=== PATIENT | female | born 1990 | race Hispanic/Latino ===

== ENCOUNTER 2021-10-18 17:27 | Emergency (ER) | payer OTHER, SELFPAY ==
--- NOTE | ~2021-10-18 | XR_ITS ---
EXAMINATION: XR chest 1V portable DATE: 10/18/2021 20:55 INDICATION: Cough, weakness, cold and nausea TECHNIQUE: frontal view of the chest was obtained. COMPARISON: None FINDINGS: Mildly decreased lung volumes. Mild streaky opacities at the lung bases and would favor atelectasis o roz pneumonia. No pleural effusion or pneumothorax. The cardiomediastinal silhouette is normal. Visua lized bones and soft tissues are unremarkable. IMPRESSION: 1. Mildly decreased lung volumes with mild streaky bibasilar opacities and would favor atelectasis ov er pneumonia. Reviewed, dictated and finalized at location H. UCER ASSISTANT IMPRESSION: 1. Mildly decreased lung volumes with mild streaky bibasilar opacities and woul d favor atelectasis over pneumonia.
[2021-10-18 17:47] VITALS: BP 138/82; PULSE 130; RESP 18; TEMP 37.4; O2SAT 96
--- NOTE | 2021-10-18 20:38 | ECG_ITS ---
Measurements Intervals [place] Rate: 124 P: 38 TN: 158 QRS: 37 QRSD: 90 T: -6 QT: 294 QTc: 423 Interpretive Statements SINUS TACHYCARDIA CONSIDER INFERIOR INFARCT, AGE INDETERMINATE ABNORMAL ECG Electronically Signed On 10-19-2021 7:44:10 [employer]YWALL SANDER by Michael Esparza D.O.
[2021-10-18 20:40] VITALS: BP 136/74; PULSE 128; RESP 27; O2SAT 95
--- NOTE | 2021-10-18 20:41 | ED.GENADULT ---
HPI - General Adult General Chief complaint: Nausea/Vomiting/Diarrhea Stated complaint: fever Time Seen by Provider: 10/18/21 20:07 Source: patient Mode of arrival: ambulatory Limitations: no limitations History of Present Illness HPI narrative: Patient presents to the emergency department stating that she has had a multitude of symptoms since yesterday. Symptoms include fever, chills, nausea, vomiting, abdominal pain, chest pain, productive cough of yellow sputum, shortness of breath, generalized weakness, headache, neck pain, and fatigue. She has a hx of headaches and current headache is consistent with nature and quality of normal headaches. She states her current headache is global and she feels like her head is going to explode . She describes her chest pain as scratchy and burning . She denies any recent known sick contacts. No hx of COVID. She has received the first of her COVID vaccinations and is scheduled to receive her second dose next month. She has been taking tylenol for her symptoms without much improvement. She states she has not been able to eat or drink today. She denies any significant underlying medical problems. She does not smoke. Related Data Allergies Allergy/AdvReac Type Severity Reaction Status Date / Time No Known Allergies Allergy Unverified 06/30/16 18:13 Review of Systems Review of Systems: CONSTITUTIONAL: Reports fever and chills. Denies sweats. EYES: Denies visual changes, redness, or discharge. ENT: Reports sore throat. Denies rhinorrhea, congestion or otalgia. CARDIOVASCULAR: Reports chest pain. Denies palpitations or edema. RESPIRATORY: Reports productive cough of yellow sputum and shortness of breath. GASTROINTESTINAL: Reports abdominal pain, nausea, vomiting. Denies diarrhea or constipation.. GENITOURINARY: Denies dysuria or hematuria. SKIN: Denies rash or itching. MUSCULOSKELETAL: Reports neck pain. Denies back pain, joint pain, or myalgia. NEUROLOGIC: Reports headache and generalized weakness. Denies numbness or dizziness. PSYCHIATRIC: Denies anxiety or depression. [facility] Past Medical History Medical History (Updated 10/18/21 @ 22:03 by Alfredo Celestin, KATHRYN, ) Headache Surgical History Surgical History History of section Family History Family History Mother No pertinent past medical history Social History Social History Smoking status: Never smoker Substance use: never Living arrangements: with family Gender identity (if verbalized by the patient): Female Sexual Orientation (if Verbalized by the Patient): Straight or Heterosexual Spiritual care concerns: No Exam Narrative: GENERAL: Appears acutely ill, in no apparent distress HEAD: Normocephalic, atraumatic. EYES: PERRLA and EOMI. ENT: Nares clear, no rhinorrhea or epistaxis. Mucous membranes moist. Oropharynx without tonsillar hypertrophy exudate or other lesions. Bilateral TMs pearly jiménez nonbulging NECK: Supple. No adenopathy or masses. No carotid bruits or JVD CHEST: Clear to auscultation. cough noted on exam. No respiratory distress. No wheezes rales or rhonchi HEART: Rate 130. Normal rhythm. No murmur heard. Normal peripheral pulses. ABDOMEN: Soft, mild diffuse nonspecific tenderness without rebound or guarding. Abdomen is nondistended, normal active bowel sounds. EXTREMITIES: Normal range of motion. No edema. SKIN: Warm, dry, no rash. NEURO: Negative Brudzinski sign. Negative Kernig sign. No focal deficits. Alert and oriented x3. PSYCH: Normal mood and affect. Course Course Emergency Course: This is a 31-year-old female who presented with multitude of complaints. Initial consideration was for COVID vs influenza vs CAP vs acute viral syndrome versus other. Labs, EKG, CXR obtained. Pt was hydrated
--- NOTE | 2021-10-18 20:59 | PC.NURSE ---
Pt moved from H2 to 14 due to COVID s/s
[2021-10-18 21:31] LABS: Add Urine Microscopic? YES; Appearance Urine Clear (Clear); Bilirubin Urine Negative (Negative); Blood Urine 1+ (Negative); Color Urine Yellow (Yellow); Glucose Urine UA Negative (Negative); Ketones Urine Negative (Negative); Leukocyte Esterase Ur Negative LEU/UL (Negative); Mucus Urine Few /lpf; Nitrate Urine Negative (Negative); Protein Urine 2+ mg/dL (Negative); Specific Grav Ur 1.023 (1.001-1.035); Squamous Epithelial Cell Urine Many /hpf (Few); Urobilinogen Urine Negative mg/dL (<2.0)
[2021-10-18] MEDS: SODIUM CHLORIDE 0.9% IV 1,000 ML 999 ML IV CONT ×2 (21:33→22:58)
[2021-10-18] MEDS: ONDANSETRON INJ 4 MG/2 ML VIAL IV PUSH (21:34)
[2021-10-18] MEDS: ACETAMINOPHEN 325 MG TABLET 650 MG PO (21:34)
[2021-10-18 21:52] LABS: Basophils Percent Auto 0.3 % (0.2-1.2); Eosinophils Percent Auto 0.4 % (0-4.4); Hematocrit 38.3 % (37.0-47.0); Hemoglobin 13.1 g/dL (12.0-15.0); Immature Granulocyte Absolute 0.09 K/mm3 (0.00-0.031); Immature Granulocyte Percent A 1.3 % (0-0.5); Lymphocytes Absolute Auto 0.93 K/mm3 (0.9-3.2); Lymphocytes Percent Auto 13.9 % (18.3-44.2); Mean Corpuscular HGB Conc 34.2 g/dl (32-36); Mean Corpuscular Hemoglobin 31.5 pg (26-34); Mean Corpuscular Volume 92.1 fl (80-100); Mean Platelet Volume 10.4 fl (7.4-10.4); Monocytes Absolute Auto 0.5 K/mm3 (0.1-0.6); Monocytes Percent Auto 7.5 % (2.6-8.5); Neutrophils Absolute Auto 5.1 K/mm3 (1.3-6.7); Neutrophils Percent Auto 76.6 % (45.5-73.1); Platelet Count Result 270 k/mm3 (150-375); Red Blood Count 4.16 M/mm3 (4.2-5.4); Red Cell Distribution Width 11.9 % (11.5-14.5); White Blood Count 6.7 K/mm3 (4.5-10.0)
[2021-10-18 22:03] LABS: Lactic Acid Reflex 1.2 mmol/L (0.7-2.1)
[2021-10-18 22:05] LABS: Alanine Aminotransferase 192 U/L (4-35); Alkaline Phosphatase 89 U/L (38-126); Anion Gap 10 mmol/L (8-16); Aspartate Amino Transferase 185 U/L (14-36); Bilirubin,Total 0.4 mg/dL (0.2-1.3); Blood Urea Nitrogen 10 mg/dL (7-17); CRP 0.9 mg/dL (<1.0); Calcium 9.3 mg/dL (8.4-10.2); Carbon Dioxide 24 mmol/L (22-30); Chloride 95 mmol/L (98-107); Creatine Kinase 100 U/L (30-135); Estimated CRCL calculation 169 ml/min; Estimated Glomerular Filt Rate > 60; Glucose 126 mg/dL (65-110); Lactate Dehydrogenase 996 U/L (313-618); Lipase 42 U/L (23-300); Sodium 129 mmol/L (137-145)
[2021-10-18 22:14] LABS: Troponin I < 0.012 ng/mL (0.000-0.034)
[2021-10-18 22:47] LABS: Prothrombin Time 13.3 Seconds (11.1-14.7)
[2021-10-18 22:48] LABS: Partial Thromboplastin Time 36.3 SECONDS (22.3-36.8)
[2021-10-18 22:50] LABS: D Dimer 0.47 ug/mL (<0.48)
[2021-10-18 22:56] VITALS: BP 109/64; PULSE 112; RESP 19; O2SAT 96
[2021-10-18] MEDS: MORPHINE SULFATE (*CRX) 2 MG/ML INJ IV PUSH (22:58)
[2021-10-19 00:19] VITALS: BP 111/62; PULSE 97; RESP 20; O2SAT 96
[2021-10-19 00:55] LABS: Troponin I < 0.012 ng/mL (0.000-0.034)
[2021-10-19 01:26] VITALS: BP 103/64; PULSE 106; RESP 20; TEMP 37.1; O2SAT 94
[2021-10-19 15:26] LABS: SARS-CoV-2 RNA PCR Positive
== END 2021-10-19 01:30 | disposition home or self-care (01) ==
PROVIDERS: Emergency Medicine; Emergency Provider Nurse Practitioner
DX: U07.1 COVID-19 (principal)
CPT/HCPCS: 36415; 71045; 80053; 81001; 81025; 82550; 83605; 83615; 83690; 84484; 85025; 85380; 85610; 85730; 86140; 87081; 87804; 87880; 93005; 96361; 96374; 96375; 99284; A9270; C9803; J2270; J2405; J7030; U0003; U0005

== ENCOUNTER 2022-11-11 09:15 | Emergency (ER) | payer OTHER, SELFPAY ==
[2022-11-11 09:18] VITALS: BP 127/72; PULSE 80; RESP 14; TEMP 36.4; O2SAT 96
--- NOTE | 2022-11-11 09:38 | ED.EXTPRO ---
HPI - Extremity Problem General Chief complaint: Extremity Problem,Nontraumatic Stated complaint: R arm wound Time Seen by Provider: 11/11/22 09:23 Source: patient Mode of arrival: ambulatory Limitations: language barrier ([employer] reading specialist used) History of Present Illness HPI Narrative: This is a 32 year old female that presents to the emergency department for an area of redness and swelling to the right arm ongoing over the last 6 days. Reports over the last 2 days she has had drainage from the area. She has been using antibiotic ointment with little relief. Denies fevers. Related Data Allergies Allergy/AdvReac Type Severity Reaction Status Date / Time No Known Allergies Allergy Verified 11/11/22 09:25 Review of Systems Review of Systems: CONSTITUTIONAL: Denies fever SKIN: Reports redness and swelling All systems reviewed & are unremarkable except as noted in HPI and below PMFSH Past Medical History Medical History (Updated 11/11/22 @ 10:43 by Nidia Musa PA-C) Headache Surgical History Surgical History History of section Family History Family History Mother No pertinent past medical history Social History Social History Smoking status: Never smoker Substance use: never Gender identity (if verbalized by the patient): Female Sexual Orientation (if Verbalized by the Patient): Straight or Heterosexual Spiritual care concerns: No Exam Narrative: GENERAL: Well-appearing, well-nourished, and in no acute distress. HEAD: Normocephalic, atraumatic. EYES: EOMI. CHEST: No respiratory distress. HEART: Regular rate EXTREMITIES: Normal range of motion. Right forearm with mild to moderate area of erythema and induration with central area of purulence actively draining. No lymphangitic streaking SKIN: Warm, dry, no rash. NEURO: No focal deficits. Alert and oriented x3. PSYCH: Normal mood and affect Course Vital Signs Vital signs: Vital Signs Temperature 97.6 F 11/11/22 09:18 Pulse Rate 80 11/11/22 09:18 Respiratory Rate 14 11/11/22 09:18 Blood Pressure 127/72 11/11/22 09:18 Pulse Oximetry 96 11/11/22 09:18 Temperature 97.6 F 11/11/22 09:18 Pulse Rate 80 11/11/22 09:18 Respiratory Rate 14 11/11/22 09:18 Blood Pressure 127/72 11/11/22 09:18 Pulse Oximetry 96 11/11/22 09:18 Procedures Abscess I/D upper extremity: Date of Incision: 11/11/22 Time of Incision: 10:42 Side (if applicable): right Local Anesthetic: lidocaine 2% and with epi Amount of anesthesia used (mL): 3 Technique: incised with #11 blade Irrigation: Yes Packing used?: iodoform I&D Results: Pus and Blood MDM - Extremity (Nontraumatic) MDM Narrative Medical decision making narrative: Patient presents to the emergency department for an abscess to the right forearm. Reports ongoing over the last 6 days. She is afebrile and nontoxic-appearing. No lymphangitic streaking. She does have mild surrounding cellulitis. The abscess was spontaneously draining, I did open it up a little bit more and packed the area. I sent a wound culture. She will be started on oral antibiotics and was instructed on further care of her wound. She will be given primary doctor for follow-up. She was given warnings to return to the ER Critical Care Time Critical Care Time Critical Care Time: No Discharge Plan Discharge Clinical Impression: Abscess Patient Disposition: Home, Self-Care Condition: Stable Instructions: Antibiotic Form, Abscess (ED) Additional Instructions: Return if symptoms worsen or concerns: any increase in redness, swelling, pain or fever over 101 Take antibiotics as directed. Clean wound with mild soapy water. Apply antibiotic
== END 2022-11-11 11:14 | disposition home or self-care (01) ==
PROVIDERS: Emergency Provider Emergency Medicine
DX: L02.413 Cutaneous abscess of right upper limb (principal)
CPT/HCPCS: 10061; 87070; 87147; 87186; 87205; 99283

== ENCOUNTER 2022-11-14 13:26 | Emergency (ER) | payer OTHER, SELFPAY ==
[2022-11-14 13:49] VITALS: BP 130/77; PULSE 90; RESP 16; TEMP 36.1; O2SAT 97
--- NOTE | 2022-11-14 14:59 | ED.GENADULT ---
HPI - General Adult General Chief complaint: Unspecified Stated complaint: low blood pressure Time Seen by Provider: 11/14/22 14:05 History of Present Illness HPI narrative: 32-year-old female here for evaluation at request of her PCP of low blood pressure. Reportedly 90s over 60s in the office. Patient's blood pressure is 130/77 here. Her only complaint is that she had an abscess drained in the ED 3 days ago and is requesting copies of the cultures. Has been taking clindamycin. She also notes a headache but has not attempted any medicine for her pain. Denies visual changes, nausea, vomiting, fevers or chills. Related Data Allergies Allergy/AdvReac Type Severity Reaction Status Date / Time No Known Allergies Allergy Verified 11/14/22 13:58 Review of Systems Review of Systems: Gen.: Reports headache. Denies fevers or chills Eyes: Denies eye pain or visual change ENT: Denies congestion Respiratory: Denies shortness of breath or cough CV: Denies chest pain or palpitations GI: Denies abdominal pain nausea, emesis or diarrhea denies burning, urgency, frequency or hematuria Musculoskeletal: Denies back pain or muscle pain Neuro: Denies numbness, tingling, weakness or focal weakness Skin: Denies rash Except as documented, all other systems reviewed and negative PMFSH Past Medical History Medical History Headache Surgical History Surgical History History of section Family History Family History Mother No pertinent past medical history Social History Social History Smoking status: Never smoker Substance use: never Living arrangements: with family Gender identity (if verbalized by the patient): Female Sexual Orientation (if Verbalized by the Patient): Straight or Heterosexual Spiritual care concerns: No Exam Narrative: APPEARANCE: Well appearing, no pain in distress, well-nourished. Head: Normocephalic and atraumatic. EYES: PERRLA/EOMI, conjunctivae clear NOSE: No nasal drainage EARS: External ear normal in appearance THROAT: Oropharynx is clear. Mucous membranes are moist. NECK: Supple. No adenopathy, no masses. RESPIRATORY: Airway patent, respirations nonlabored. Clear to auscultation bilaterally, no rales, rhonchi, wheezing. CARDIOVASCULAR: Regular rate and rhythm without murmurs, rubs, or gallops. ABDOMINAL: Normoactive bowel sounds. Soft, nontender, nondistended. No rebound tenderness or guarding. MUSCULOSKELETAL: Extremities are warm and well-perfused. Moves all extremities well. No edema. NEURO: Normal speech. No focal neurologic deficits. SKIN: patient has a 2x3 cm area of induration to the r forearm with no surrounding erythema. no tenderness to palpation. PSYCHIATRIC: Normal affect/mood. Course Vital Signs Vital signs: Vital Signs Temperature 97 F L 11/14/22 13:49 Pulse Rate 90 11/14/22 13:49 Respiratory Rate 16 11/14/22 13:49 Blood Pressure 130/77 11/14/22 13:49 Pulse Oximetry 97 11/14/22 13:49 Oxygen Delivery Room Air 11/14/22 13:49 Temperature 97 F L 11/14/22 13:49 Pulse Rate 82 11/14/22 16:34 Respiratory Rate 16 11/14/22 16:34 Blood Pressure 127/88 11/14/22 16:34 Pulse Oximetry 100 11/14/22 16:34 Oxygen Delivery Room Air 11/14/22 13:49 Medical Decision Making MDM Narrative Medical decision making narrative: 32 year old female here for evaluation after low BP in PCPs office; noted to be 130/77 here. Remainder of vital signs normal. Patient's only complaint is a headache requesting copies of her cultures from an abscess she had drained in the ED several days ago. Per chart review this was staph aureus susceptible to clindamycin that she is taking. She was given Tylenol with resolution
[2022-11-14] MEDS: ACETAMINOPHEN 325 MG TABLET 650 MG PO (15:00)
[2022-11-14 15:12] LABS: Basophils Percent Auto 0.4 % (0.2-1.2); Eosinophils Absolute Auto 0.3 K/mm3 (0-0.3); Eosinophils Percent Auto 2.6 % (0-4.4); Hematocrit 40.2 % (37.0-47.0); Hemoglobin 13.6 g/dL (12.0-15.0); Immature Granulocyte Absolute 0.07 K/mm3 (0.00-0.031); Immature Granulocyte Percent A 0.7 % (0-0.5); Mean Corpuscular HGB Conc 33.8 g/dl (32-36); Mean Corpuscular Volume 91.6 fl (80-100); Mean Platelet Volume 10.3 fl (7.4-10.4); Monocytes Absolute Auto 0.5 K/mm3 (0.1-0.6); Monocytes Percent Auto 5.1 % (2.6-8.5); Neutrophils Absolute Auto 5.2 K/mm3 (1.3-6.7); Neutrophils Percent Auto 49.2 % (45.5-73.1); Platelet Count Result 305 k/mm3 (150-375); Red Blood Count 4.39 M/mm3 (4.2-5.4); Red Cell Distribution Width 11.9 % (11.5-14.5); White Blood Count 10.5 K/mm3 (4.5-10.0)
[2022-11-14 15:25] LABS: Alanine Aminotransferase 233 U/L (6-35); Albumin Level 4.2 g/dL (3.5-5.1); Alkaline Phosphatase 105 U/L (38-126); Anion Gap 9 mmol/L (8-16); Aspartate Amino Transferase 124 U/L (14-36); Bilirubin,Total 0.3 mg/dL (0.2-1.3); Blood Urea Nitrogen 12 mg/dL (7-17); Calcium 9.2 mg/dL (8.4-10.2); Carbon Dioxide 27 mmol/L (22-30); Chloride 104 mmol/L (98-107); Cholesterol 232 mg/dL (0-200); Estimated CRCL calculation 137 ml/min; Estimated Glomerular Filt Rate > 60; Glucose 105 mg/dL (65-110); HDL Direct 37 mg/dL; Potassium 3.7 mmol/L (3.4-5.0); Sodium 140 mmol/L (137-145); Triglycerides 307 mg/dL (<150)
[2022-11-14 15:30] LABS: Hemoglobin A1C 5.8 % (<5.7)
[2022-11-14 15:35] LABS: LDL Cholesterol Direct 137 mg/dL
[2022-11-14 16:34] VITALS: BP 127/88; PULSE 82; RESP 16; O2SAT 100
== END 2022-11-14 16:35 | disposition home or self-care (01) ==
PROVIDERS: Emergency Provider Physician Assistant; PCP Emergency Medicine
DX: R51.9 Headache, unspecified (principal)
CPT/HCPCS: 36415; 80053; 80061; 83036; 84443; 85025; 99283; A9270

== ENCOUNTER 2022-12-18 13:43 | Emergency (ER) | payer OTHER, SELFPAY ==
[2022-12-18 14:04] VITALS: BP 124/84; PULSE 94; RESP 20; TEMP 36.9; O2SAT 97
--- NOTE | 2022-12-18 16:43 | ED.SKABFB ---
HPI - Skin/Abscess/Foreign Bdy General Chief complaint: Skin/Abscess/Foreign Body Stated complaint: rash on abdomen, legs and arms x 4 days Time Seen by Provider: 12/18/22 16:43 Source: patient Mode of arrival: ambulatory Limitations: no limitations History of Present Illness HPI narrative: Patient is a 32-year-old female with a history of depression presenting to the emergency department for evaluation of multiple symptoms including rash to upper and lower extremities as well as abdomen, fatigue, nausea. Patient states that she has felt unwell since taking medication fluoxetine that was prescribed 2 weeks ago by her primary care physician. Patient states she has had a rash over the past several days that is itching in nature. Patient states she did not take her fluoxetine this morning states that the rash does seem somewhat improved. She has also been using hydrocortisone cream and hydroxyzine that was prescribed by KARIN at her primary care physician's office which has not helped to alleviate the symptoms very much patient denies any vomiting. She denies focal weakness or headache. She denies any numbness. No fall or injury. She denies chest pain, cough, shortness of breath. She denies dysuria or hematuria. No other new medications. She denies new soaps, lotions or detergents. She denies bruising. Patient without history of allergic reactions in the past. She denies known medication allergies. Son has similar rash but states that is on his forehead. She does not think that there is any bedbug exposure. Related Data Allergies Allergy/AdvReac Type Severity Reaction Status Date / Time No Known Allergies Allergy Verified 12/18/22 13:44 Review of Systems Review of Systems: CONSTITUTIONAL: Denies fever, chills, or sweats. ENT: Denies rhinorrhea, congestion, sore throat, or otalgia. CARDIOVASCULAR: Denies chest pain, palpitations, or edema. RESPIRATORY: Denies cough or dyspnea. GASTROINTESTINAL: Denies abdominal pain, reports nausea without vomiting GENITOURINARY: Denies dysuria or hematuria. SKIN: Reports itching rash and skin MUSCULOSKELETAL: Denies back pain, joint pain, or myalgia. NEUROLOGIC: Denies headache, numbness, or weakness. PMF Past Medical History Medical History Headache Surgical History Surgical History History of section Family History Family History Mother No pertinent past medical history Social History Social History Smoking status: Never smoker Substance use: never Living arrangements: with family Gender identity (if verbalized by the patient): Female Sexual Orientation (if Verbalized by the Patient): Straight or Heterosexual Spiritual care concerns: No Exam Narrative: GENERAL: Awake, alert, conversant HEAD: Normocephalic, atraumatic. EYES: PERRLA and EOMI. ENT: Nares clear, no rhinorrhea or epistaxis. Mucous membranes moist. NECK: Supple. CHEST: No respiratory distress, breathing even and non labored HEART: Regular rate, sinus rhythm ABDOMEN: Obese, non distended, non tender EXTREMITIES: Normal range of motion. No edema. SKIN: Scattered maculopapular rash to the abdomen, proximal thighs, bilateral upper extremities. No urticaria. No blisters or vesicles. No petechiae. No significant induration or streaking erythema. No associated lymphadenopathy. NEURO:No focal deficits. Alert and oriented x3 Course Vital Signs Vital signs: Vital Signs Temperature 36.9 C 12/18/22 14:04 Pulse Rate 94 12/18/22 14:04 Respiratory Rate 20 12/18/22 14:04 Blood Pressure 124/84 12/18/22 14:04 Pulse Oximetry 97 12/18/22 14:04 Oxygen Delivery Room Air 12/18/22 14:04 Temperature 36.7 C 12/18/22 19:23 Pulse Rate 98 12/18/22 19:23 Respir
--- NOTE | 2022-12-18 17:37 | ECG_ITS ---
Measurements Intervals [place] Rate: 99 P: 32 [place]: 165 QRS: 38 QRSD: 98 T: -4 QT: 335 QTc: 430 Interpretive Statements SINUS RHYTHM WITHIN NORMAL LIMITS COMPARED WITH 10/18/2021 NO SIGNIFICANT CHANGE Electronically Signed On 12-19-2022 15:10:53 [employer]AMES INSPECTOR by Adrián Green M.D.
[2022-12-18] MEDS: diphenhydrAMINE HCl INJ 50 MG/ML VIAL IV PUSH (17:55)
[2022-12-18] MEDS: ONDANSETRON INJ 4 MG/2 ML VIAL IV PUSH (17:55)
[2022-12-18] MEDS: SODIUM CHLORIDE 0.9% IV 1,000 ML 999 ML IV CONT (17:55)
[2022-12-18] MEDS: FAMOTIDINE 20 MG/2 ML VIAL IV PUSH (17:56)
[2022-12-18 18:24] LABS: Basophils Percent Auto 0.3 % (0.2-1.2); Eosinophils Absolute Auto 0.3 K/mm3 (0-0.3); Eosinophils Percent Auto 3.4 % (0-4.4); Hemoglobin 12.9 g/dL (12.0-15.0); Immature Granulocyte Absolute 0.02 K/mm3 (0.00-0.031); Immature Granulocyte Percent A 0.3 % (0-0.5); Lymphocytes Absolute Auto 2.48 K/mm3 (0.9-3.2); Lymphocytes Percent Auto 31.6 % (18.3-44.2); Mean Corpuscular HGB Conc 33.9 g/dl (32-36); Mean Corpuscular Hemoglobin 31.5 pg (26-34); Mean Corpuscular Volume 92.7 fl (80-100); Mean Platelet Volume 10.9 fl (7.4-10.4); Monocytes Absolute Auto 0.6 K/mm3 (0.1-0.6); Neutrophils Absolute Auto 4.4 K/mm3 (1.3-6.7); Neutrophils Percent Auto 56.4 % (45.5-73.1); Platelet Count Result 300 k/mm3 (150-375); Red Cell Distribution Width 12.5 % (11.5-14.5); White Blood Count 7.9 K/mm3 (4.5-10.0)
[2022-12-18 18:44] LABS: Albumin Level 4.6 g/dL (3.5-5.1); Alkaline Phosphatase 98 U/L (38-126); Anion Gap 5 mmol/L (8-16); Aspartate Amino Transferase 221 U/L (14-36); Bilirubin,Total 0.5 mg/dL (0.2-1.3); Blood Urea Nitrogen 11 mg/dL (7-17); Calcium 8.9 mg/dL (8.4-10.2); Carbon Dioxide 26 mmol/L (22-30); Chloride 103 mmol/L (98-107); Estimated Glomerular Filt Rate > 60; Glucose 104 mg/dL (65-110); Potassium 3.9 mmol/L (3.4-5.0); Sodium 134 mmol/L (137-145)
[2022-12-18 18:56] LABS: Alanine Aminotransferase 310 U/L (6-35)
[2022-12-18 19:23] VITALS: BP 139/89; PULSE 98; RESP 14; TEMP 36.7; O2SAT 95
[2022-12-18 19:50] LABS: Appearance Urine Clear (Clear); Bilirubin Urine Negative (Negative); Blood Urine Trace-lysed (Negative); Glucose Urine UA Negative (Negative); Ketones Urine Trace mg/dL (Negative); Leukocyte Esterase Ur Negative LEU/UL (Negative); Nitrate Urine Negative (Negative); Protein Urine 2+ mg/dL (Negative); Specific Grav Ur >= 1.030 (1.001-1.035); Urobilinogen Urine 0.2 mg/dL (<2.0); pH Urine 5.5 (5.0-9.0)
[2022-12-18 19:54] LABS: Mucus Urine Few /lpf; Squamous Epithelial Cell Urine Occasional /hpf (Few); WBC Urine 0-3 /hpf
[2022-12-18 19:56] LABS: Color Urine Dark Yellow (Yellow)
[2022-12-18 19:57] LABS: Add Urine Microscopic? YES
[2022-12-18] MEDS: ACETAMINOPHEN 500 MG TABLET 1000 MG PO (20:13)
== END 2022-12-18 20:55 | disposition home or self-care (01) ==
PROVIDERS: Emergency Provider Emergency Medicine
DX: R21 Rash and other nonspecific skin eruption (principal); R74.01 Elevation of levels of liver transaminase levels; F32.A Depression, unspecified
CPT/HCPCS: 36415; 80053; 81001; 81025; 84443; 85025; 93005; 96361; 96374; 96375; 99284; A9270; J1100; J1200; J2405; J7030

== ENCOUNTER 2023-02-23 13:09 | Emergency (ER) | payer OTHER, SELFPAY ==
--- NOTE | 2023-02-23 13:10 | ED.URI ---
HPI - URI/Sore Throat General Chief Complaint: Upper Respiratory Infection Stated Complaint: Sore Throat/Ears Irritation Time Seen by Provider: 02/23/23 13:10 Source: patient Mode of arrival: ambulatory Limitations: no limitations History of Present Illness HPI Narrative: Gianna is a 32-year-old female patient presenting to the clinic today with complaints of sore throat, cough, nasal congestion, and ear pain. States cough and congestion has been going on for 2 weeks however other symptoms just started over the last few days. Has felt feverish but did not check her temperature. MD elicited complaint: sore throat and nasal congestion Related Data Allergies Allergy/AdvReac Type Severity Reaction Status Date / Time No Known Allergies Allergy Verified 02/23/23 13:18 Review of Systems Review of Systems: Pertinent positives per HPI. Patient denies any rash, headache, visual changes, dizziness, shortness of breath, chest pain, palpitations, nausea, vomiting, diarrhea, constipation, abdominal pain, or any urinary issues. PMF Past Medical History Medical History Headache Surgical History Surgical History History of section Family History Family History Mother No pertinent past medical history Social History Social History Smoking status: Never smoker Substance use: never Living arrangements: with family Gender identity (if verbalized by the patient): Female Sexual Orientation (if Verbalized by the Patient): Straight or Heterosexual Spiritual care concerns: No Comments At the time of my signature, I reviewed and agree with the nursing past medical, surgical, social, and family history. There is no relevant family history pertinent to the patient complaint. Exam Narrative: General: Well-developed, morbidly obese, in no apparent distress Head: Normocephalic, atraumatic Eyes: Pupils equally round and reactive to light bilaterally, EOM intact, sclera and conjunctive clear, no discharge, lids normal Ears: Right TMs intact and clear, Left TM intact, bulging, red, ear canals clear, no drainage, grossly hearing normal. Nose: Nares patent, clear nasal discharge,moderate inflammation,mild sinus tenderness. Mouth: Oral pharynx without lesions or masses, good dentition, MMM. PND Neck: Supple, trachea midline, no enlargement of anterior or posterior cervical nodes, no thyroid masses or goiter palpable. Cardio: Regular rate and rhythm, s1 and s2 normal, no murmur appreciated. Resp: Clear to auscultation bilaterally, no rhonchi, rales, wheezing or rubs Course Course Emergency Course: Portions of this record may have been created with voice recognition software. Level of Care: Express Care Visit Vital Signs Vital signs: Vital signs reviewed MDM - URI/Sore Throat MDM Narrative Medical decision making narrative: At the time of visit patient is resting comfortably on the exam table. I suspect patient has sinusitis with otitis media of the left ear. Prescription for Augmentin was sent to the pharmacy poor supportive measures were discussed with the patient and she voiced understanding of discharge instructions agrees to treatment plan. Differential Diagnosis Differential diagnosis: Likely upper respiratory infection, otitis media, sinusitis, viral infection, bronchitis, influenza, pharyngitis and other (COVID) Discharge Plan Discharge Clinical Impression: Acute left otitis media Sinusitis Qualifiers: Sinusitis location: unspecified location Chronicity: acute Recurrence: non-recurrent Qualified Code(s): J01.90 - Acute sinusitis, unspecified Patient Disposition: Home, Self-Care Condition: Stable Instructions: Antibiotic Form, Sinusitis (
[2023-02-23 13:18] VITALS: BP 121/74; PULSE 107; RESP 16; TEMP 37.1; O2SAT 98
[2023-02-23 13:19] VITALS: BP 121/74; PULSE 107; RESP 16; TEMP 37.1; O2SAT 98
== END 2023-02-23 13:29 | disposition home or self-care (01) ==
PROVIDERS: Emergency Provider Nurse Practitioner Family
DX: H66.92 Otitis media, unspecified, left ear (principal); J01.90 Acute sinusitis, unspecified
CPT/HCPCS: 99213; G0463

== ENCOUNTER 2023-03-17 16:49 | Emergency (ER) | payer OTHER, SELFPAY ==
[2023-03-17 17:00] VITALS: BP 125/65; PULSE 103; RESP 16; TEMP 37.2; O2SAT 99
--- NOTE | 2023-03-17 18:29 | ED.GENADULT ---
HPI - General Adult General Chief complaint: Upper Respiratory Infection Stated complaint: Sore Throat Source: patient Mode of arrival: ambulatory Limitations: no limitations History of Present Illness HPI narrative: Patient presents for evaluation of sore throat. She indicates she was hospitalized at [facility] in early January with a rash. Etiology was unknown. She was treated with 2 weeks of steroids. She indicates she was seen here at the start of February for cough. She is diagnosed with an ear infection pharyngitis and was given Augmentin. Her symptoms improved while on medication but returned 1 week ago when she completed her medication. She denies any fever, chills, nausea, vomiting, diarrhea, shortness of breath. She does report a cough. Her son is being evaluated here for similar symptoms. she states her also has a cough. Related Data Allergies Allergy/AdvReac Type Severity Reaction Status Date / Time No Known Allergies Allergy Verified 02/23/23 13:18 Review of Systems Review of Systems: CONSTITUTIONAL: Denies fever, chills, or sweats. EYES: Denies visual changes, redness, or discharge. ENT: Reports sore throat.Denies rhinorrhea, congestion, sore throat, or otalgia. CARDIOVASCULAR: Denies chest pain, palpitations, or edema. RESPIRATORY: Reports cough. Denies dyspnea. GASTROINTESTINAL: Denies abdominal pain, nausea, vomiting, or diarrhea. GENITOURINARY: Denies dysuria or hematuria. SKIN: Denies rash or itching. MUSCULOSKELETAL: Denies back pain, joint pain, or myalgia. NEUROLOGIC: Denies headache, numbness, dizziness, or weakness. PSYCHIATRIC: Denies anxiety or depression. [facility] Past Medical History Medical History Headache Surgical History Surgical History History of section Family History Family History Mother No pertinent past medical history Social History Social History Smoking status: Never smoker Substance use: never Living arrangements: with family Gender identity (if verbalized by the patient): Female Sexual Orientation (if Verbalized by the Patient): Straight or Heterosexual Spiritual care concerns: No Exam Narrative: GENERAL: Well-appearing, well-nourished, and in no acute distress. HEAD: Normocephalic, atraumatic. EYES: PERRLA and EOMI. ENT: Nares clear, no rhinorrhea or epistaxis. Mucous membranes moist. Bilateral tonsillar swelling and erythema without exudate. Uvula is midline. Bilateral TMs pearly jiménez nonbulging NECK: Supple. No adenopathy or masses. No carotid bruits or JVD CHEST: Clear to auscultation. No respiratory distress. No wheezes rales or rhonchi HEART: Regular rate and rhythm. No murmur heard. Normal peripheral pulses. ABDOMEN: Soft, nontender, nondistended, normal active bowel sounds. EXTREMITIES: Normal range of motion. No edema. SKIN: Warm, dry, no rash. NEURO: No focal deficits. Alert and oriented x3. PSYCH: Normal mood and affect. Course Course Emergency Course: This is a 32-year-old female who presented for evaluation of sore throat. Rapid strep positive. Will treat with cephalexin as she was recently treated with Augmentin for another infection. Increase hydration. [id number] agents for symptom management. Follow up with primary provider. No evidence of [employer] MATERIAL HANDLER on exam. Go to the ER for worsening symptoms. Patient in agreement with plan of care Level of Care: Express Care Visit Vital Signs Vital signs: Vital Signs Temperature 37.2 C 03/17/23 17:00 Pulse Rate 103 H 03/17/23 17:00 Respiratory Rate 16 03/17/23 17:00 Blood Pressure 125/65 03/17/23 17:00 Pulse Oximetry 99 03/17/23 17:00 Oxygen Delivery Room Air 03/17/23 17:00 Temperat
== END 2023-03-17 18:37 | disposition home or self-care (01) ==
PROVIDERS: Emergency Provider Nurse Practitioner; PCP Physician Assistant
DX: J02.0 Streptococcal pharyngitis (principal)
CPT/HCPCS: 87081; 87880; 99213; G0463

== ENCOUNTER 2023-06-26 10:37 | Emergency (ER) | payer OTHER, SELFPAY ==
[2023-06-26 10:58] VITALS: BP 115/68; PULSE 89; RESP 22; TEMP 36.4; O2SAT 100
--- NOTE | 2023-06-26 12:05 | ED.GENADULT ---
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 Denies injury or trauma. States she was hospitalized 5 months ago due to an allergic reaction and rash. She was given steroids for her rash at that time. She developed knee pain at that time and was told that it could of been due to the medications that she was given, but the pain has not improved. Pain increases when she goes up and down the stairs and with prolonged standing. She has not followed up with her PCP regarding her ongoing pain. Patient is also complaining of fatigue and dizziness x2 months, almost daily. Denies any additional symptoms to include shortness of breath, chest pain, numbness or tingling, vision changes, frequent falls. States she has gone to the ER regarding these symptoms, checked out, and discharged without explanation for her symptoms. She was then told to follow up with her PCP, which she has not done. Related Data Home Medications Medication Instructions Recorded Confirmed No Home Medications 06/26/23 06/26/23 Allergies Allergy/AdvReac Type Severity Reaction Status Date / Time No Known Allergies Allergy Verified 06/26/23 10:59 Review of Systems Review of Systems: CONSTITUTIONAL: Denies body aches, fever, chills, or sweats.+ fatigue EYES: Denies visual changes, redness, or discharge. ENT: Denies rhinorrhea, congestion, sore throat, or otalgia. CARDIOVASCULAR: Denies chest pain, palpitations, or edema. RESPIRATORY: Denies cough or dyspnea. GASTROINTESTINAL: Denies abdominal pain, nausea, vomiting, or diarrhea. GENITOURINARY: Denies dysuria or hematuria. SKIN: Denies rash, itching, or wounds. MUSCULOSKELETAL: Denies back pain, or myalgia.+ bilateral knee pain NEUROLOGIC: Denies headache, numbness, tingling, or weakness.+ dizziness PSYCH: Denies depression or anxiety. [facility] Past Medical History Medical History Headache Surgical History Surgical History History of section Family History Family History Mother No pertinent past medical history Social History Social History Smoking status: Never smoker Substance use: never Living arrangements: with family Gender identity (if verbalized by the patient): Female Sexual Orientation (if Verbalized by the Patient): Straight or Heterosexual Spiritual care concerns: No Comments At time of signature, I have reviewed and agree with nursing past medical, surgical, social and family history unless otherwise noted. Please see nursing chart for further information. There is no relevant family history pertinent to the presenting complaint Exam Narrative: GENERAL: Well-appearing, well-nourished, and in no acute distress. HEAD: Normocephalic, atraumatic. EYES: EOMI. PERRL. No redness or drainage. Conjunctivae normal. ENT: Mucous membranes pink and moist. Nares clear. No rhinorrhea. TMs normal bilaterally. Throat normal. Uvula midline. NECK: Normal AROM. Supple. No lymphadenopathy. CHEST: No respiratory distress. Clear to auscultation. HEART: Regular rate and rhythm. No murmur appreciated. Normal peripheral pulses. EXTREMITIES: + bilateral knee tenderness without edema, ecchymosis, or erythema. Patient reports right knee pain with flexion. Distal sensation intact. Capillary refill normal. Bilateral dorsiflexion and plantar flexion equal and strong against resistance. Hand direct of real estate equal and strong. SKIN: Warm, dry, no r
== END 2023-06-26 12:28 | disposition home or self-care (01) ==
PROVIDERS: Emergency Provider Nurse Practitioner; PCP Physician Assistant
DX: R42 Dizziness and giddiness (principal); G89.29 Other chronic pain; M25.562 Pain in left knee; M25.561 Pain in right knee
CPT/HCPCS: 99211; G0463

== ENCOUNTER 2023-10-21 11:49 | Emergency (ER) | payer SELFPAY ==
[2023-10-21 12:05] VITALS: BP 137/67; PULSE 89; RESP 18; TEMP 36.8; O2SAT 98
--- NOTE | 2023-10-21 12:27 | ED.URI ---
HPI - URI/Sore Throat General Chief Complaint: Upper Respiratory Infection Stated Complaint: Cough Time Seen by Provider: 10/21/23 12:40 Source: patient and RN notes reviewed Mode of arrival: ambulatory Limitations: language barrier (Nib Finisher used) History of Present Illness HPI Narrative: 33-year-old female presents with concern for one-month history of cough, sore throat. Reports children have similar symptoms. She also reports intermittent in blood in her stool that she has had on off for 11 years. Reports it has worsened lately since she started metformin. She reports she called her doctor about it also went to the ER but because she was not having bloody stools about movement they told her they could not help her. She is not having any abdominal pain. MD elicited complaint: cough and sore throat Related Data Allergies Allergy/AdvReac Type Severity Reaction Status Date / Time No Known Allergies Allergy Verified 10/21/23 11:53 Review of Systems Review of Systems: CONSTITUTIONAL: Denies malaise, chills, sweats, or fever. EYES: Denies visual changes, redness, or discharge. ENT: Reports rhinorrhea, congestion, sore throat. CARDIOVASCULAR: Denies chest pain, palpitations, or edema. RESPIRATORY: Reports cough. Denies dyspnea. GASTROINTESTINAL: Denies abdominal pain, nausea, vomiting, diarrhea SKIN: Denies rash or itching. MUSCULOSKELETAL: Denies myalgia. NEUROLOGIC: Denies headache. All systems reviewed & are unremarkable except as noted in HPI and below PMFSH Past Medical History Medical History Headache Surgical History Surgical History History of section Family History Family History Mother No pertinent past medical history Social History Social History Smoking status: Never smoker Substance use: never Living arrangements: with family Gender identity (if verbalized by the patient): Female Sexual Orientation (if Verbalized by the Patient): Straight or Heterosexual Spiritual care concerns: No Comments At time of signature, agree with nursing past medical, surgical, social and family history. There is no relevant family history pertinent to the presenting complaint Exam Narrative: GENERAL: Well-appearing, well-nourished, and in no acute distress. HEAD: Normocephalic EYES: PERRLA, conjunctivae clear ENT: Nares clear, turbinates edematous and erythematous, clear discharge. Mucous membranes moist. TM pearly jiménez with dull light reflex bilaterally; no tragal tenderness. Oropharynx not erythematous without lesions. Tonsils not enlarged and without exudate, no drooling, no hoarseness, no trismus, uvula midline. NECK: Supple. No lymphadenopathy CHEST: Clear to auscultation, breath sounds equal. No wheezing, rhonchi, rales, or stridor. No respiratory distress, speaks in full sentences. HEART: Regular rate and rhythm. No murmur heard. SKIN: Warm, dry, no rash. NEURO: Alert and oriented x3. PSYCH: Normal mood and affect Course Course Emergency Course: Patient is aware of diagnosis, understands and agrees to treatment plan. Anticipatory guidance given. Patient agrees to follow-up as directed and is aware of reasons to seek care at the emergency department. Portions of this record may have been created with voice recognition software Level of Care: Express Care Visit Vital Signs Vital signs: Vital Signs Temperature 98.2 F 10/21/23 12:05 Pulse Rate 89 10/21/23 12:05 Respiratory Rate 18 10/21/23 12:05 Blood Pressure 137/67 10/21/23 12:05 Pulse Oximetry 98 10/21/23 12:05 Oxygen Delivery Room Air 10/21/23 12:05 Temperature 98.2 F 10/21/23 12:05 Pulse Rate 89 10/21/23 12:05 Respiratory Rate 18 10/21/23 12:05 B
== END 2023-10-21 13:30 | disposition home or self-care (01) ==
PROVIDERS: Emergency Provider Nurse Practitioner; PCP Physician Assistant
DX: J02.0 Streptococcal pharyngitis (principal); Z20.822 Contact with and (suspected) exposure to COVID-19
CPT/HCPCS: 87426; 87804; 87880; 99213; C9803; G0463

== ENCOUNTER 2024-02-25 09:33 | Emergency (ER) | payer SELFPAY ==
--- NOTE | ~2024-02-25 | XR_ITS ---
XR knee RT min 4V, XR knee LT min 4V 02/25/2024 10:29 Indication: Knee pain Procedure: 4 views each knee Comparison: No prior studies for comparison. Findings: No fracture, subluxation or dislocation. No significant joint effusion. No foreign bodies. Impression: 1: No acute bone or joint abnormality. Reviewed, dictated and finalized at location B. Impression: 1: No acute bone or joint abnormality. Impression: 1: No acute bone or joint abnormality.
[2024-02-25 09:36] VITALS: BP 114/96; PULSE 87; RESP 16; TEMP 36.4; O2SAT 98
--- NOTE | 2024-02-25 10:02 | ED.EXTPRO ---
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 She reports that the knee feels swollen and is popping when she is walking. Having significant pain with ambulation. Also reporting some pain to the right knee now has send she has been over compensating and applying more weight on her right knee. Is also having knee popping to the right knee. Denies any injury. Last menstrual period was last month but she is irregular. Related Data Allergies Allergy/AdvReac Type Severity Reaction Status Date / Time No Known Allergies Allergy Verified 02/25/24 09:34 Review of Systems Review of Systems: Pertinent positives per HPI. Patient denies any fever, chills, rash, headache, visual changes, dizziness, cough, runny nose, sore throat, shortness of breath, chest pain, palpitations, nausea, vomiting, diarrhea, constipation, abdominal pain, or any urinary issues. [facility] Past Medical History Medical History Headache Surgical History Surgical History History of section Family History Family History Mother No pertinent past medical history Social History Social History Smoking status: Never smoker Substance use: never Living arrangements: with family Gender identity (if verbalized by the patient): Female Sexual Orientation (if Verbalized by the Patient): Straight or Heterosexual Spiritual care concerns: No Comments At the time of my signature, I reviewed and agree with the nursing past medical, surgical, social, and family history. There is no relevant family history pertinent to the patient complaint. Exam Narrative: General: Well-developed, morbidly obese, in no apparent distress Head: Normocephalic, atraumatic. Cardio: Regular rate and rhythm, s1 and s2 normal, no murmur appreciated. Resp: Clear to auscultation bilaterally, no rhonchi, rales, wheezing or rubs. Musculoskeletal: No deformity, mild swelling to the left knee when compared to the right, tender to palpation to the lateral, medial, and posterior left knee, pain to the lateral and medial right knee, crepitus with flexion extension, popping felt with full extension bilaterally, grossly normal range of motion, muscle strength strong and equal, peripheral pulse strong, n no cyanosis, normal gait and station Course Course Emergency Course: Portions of this record may have been created with voice recognition software. Vital Signs Vital signs: Vital Signs Temperature 36.4 C 02/25/24 09:36 Pulse Rate 87 02/25/24 09:36 Respiratory Rate 16 02/25/24 09:36 Blood Pressure 114/96 H 02/25/24 09:36 Pulse Oximetry 98 02/25/24 09:36 Oxygen Delivery Room Air 02/25/24 09:36 Temperature 36.4 C 02/25/24 09:36 Pulse Rate 87 02/25/24 09:36 Respiratory Rate 16 02/25/24 09:36 Blood Pressure 114/96 H 02/25/24 09:36 Pulse Oximetry 98 02/25/24 09:36 Oxygen Delivery Room Air 02/25/24 09:36 Vital signs reviewed MDM - Extremity (Nontraumatic) MDM Narrative Medical decision making narrative: At the time of visit patient is resting comfortably on the exam table. Patient appears to be nontoxic. Labs: Bedside negative in the ER Diagnostics: Bilateral knee x-ray negative for any fracture or malalignment. Plan: I suspect patient has acute knee pain. X-ray is negative for any sign of fracture, malalignment, or joint effusion Supportive
== END 2024-02-25 10:58 | disposition home or self-care (01) ==
PROVIDERS: Emergency Provider Nurse Practitioner Family; PCP Physician Assistant
DX: M25.562 Pain in left knee (principal); M25.561 Pain in right knee
CPT/HCPCS: 73564; 81025; 99284

== ENCOUNTER 2024-03-22 11:39 | Emergency (ER) | payer SELFPAY ==
--- NOTE | 2024-03-22 11:44 | ED.LOWEXIN ---
HPI - Extremity Injury (Lower) General Chief Complaint: Extremity Injury, Lower Stated Complaint: Left Knee Pain Time Seen by Provider: 03/22/24 12:00 Source: patient and RN notes reviewed Mode of arrival: ambulatory Limitations: no limitations History of Present Illness HPI Narrative: 33-year-old female presents with concern for ongoing left knee pain. She was seen here at the beginning of February for similar pain and has since been taking ibuprofen and using a knee brace. She denies any new injury MD complaint: knee injury Related Data Allergies Allergy/AdvReac Type Severity Reaction Status Date / Time No Known Allergies Allergy Verified 03/22/24 11:42 Review of Systems Review of Systems: CONSTITUTIONAL: Denies malaise, chills, sweats, or fever. SKIN: Denies rash or itching, open skin, laceration, abrasion, redness, warmth, swelling. MUSCULOSKELETAL: Reports left knee pain NEUROLOGIC: Denies numbness, weakness All systems reviewed & are unremarkable except as noted in HPI and below PMFSH Past Medical History Medical History Headache Surgical History Surgical History History of section Family History Family History Mother No pertinent past medical history Social History Social History Smoking status: Never smoker Substance use: never Living arrangements: with family Gender identity (if verbalized by the patient): Female Sexual Orientation (if Verbalized by the Patient): Straight or Heterosexual Spiritual care concerns: No Comments At time of signature, agree with nursing past medical, surgical, social and family history. There is no relevant family history pertinent to the presenting complaint Exam Narrative: GENERAL: Well-appearing, well-nourished, and in no acute distress. HEAD: Normocephalic, atraumatic. EYES: PERRLA, conjunctivae clear NECK: Supple. CHEST: Speaks in full sentences. No respiratory distress. HEART: Regular rate and rhythm. Normal and equal peripheral pulses. EXTREMITIES: Left knee has normal strength and sensation. No edema or ecchymosis. Normal sensation with sensitivity to light touch and pain. No point tenderness. No open wounds, no skin tenting, no devitalized tissue or atrophy, no trophic changes, no obvious deformity, alignment normal, nearby joints and structures intact. Distal pulses palpable and equal bilaterally, skin warm, dry, pink. Capillary refill less than 3 seconds. SKIN: Warm, dry, no rash. NEURO: Alert and oriented x3. PSYCH: Normal mood and affect Course Course Emergency Course: Patient is aware of diagnosis, understands and agrees to treatment plan. Anticipatory guidance given. Patient agrees to follow-up as directed and is aware of reasons to seek care at the emergency department. Portions of this record may have been created with voice recognition software Level of Care: Express Care Visit Vital Signs Vital signs: Vital Signs Temperature 99.0 F 03/22/24 11:53 Pulse Rate 80 03/22/24 11:53 Respiratory Rate 16 03/22/24 11:53 Blood Pressure 123/59 L 03/22/24 11:53 Pulse Oximetry 100 03/22/24 11:53 Oxygen Delivery Room Air 03/22/24 11:53 Temperature 99.0 F 03/22/24 11:53 Pulse Rate 80 03/22/24 11:53 Respiratory Rate 16 03/22/24 11:53 Blood Pressure 123/59 L 03/22/24 11:53 Pulse Oximetry 100 03/22/24 11:53 Oxygen Delivery Room Air 03/22/24 11:53 Reviewed. MDM - Extremity Injury (Lower) MDM Narrative Medical decision making narrative: Patients injury and pain is consistent with musculoskeletal etiology. No signs of neurological or vascular compromise on exam. Compartments and tissues are soft without signs of compartment syndrome. Pain is felt appropriate for
[2024-03-22 11:53] VITALS: BP 123/59; PULSE 80; RESP 16; TEMP 37.2; O2SAT 100
== END 2024-03-22 12:25 | disposition home or self-care (01) ==
PROVIDERS: Emergency Provider Nurse Practitioner; PCP Physician Assistant
DX: M25.562 Pain in left knee (principal)
CPT/HCPCS: 99212; G0463